=== PATIENT | female | born 1940 | race Caucasian/White ===

== ENCOUNTER 2020-03-12 11:05 | Inpatient (IN) | payer MEDICARE, OTHER, MEDICAID ==
[~2020-03-12] VITALS: Ht 167.6 cm; Wt 62.2 kg
--- NOTE | ~2020-03-12 | H ---
[address] [address] HISTORY AND PHYSICAL Name: DEON FLOYD Room: [address] IN M.R.#: [id number] Admission: 03/12/20 Attend Phys: Stephon Snyder Discharge: Date of : 42 Report #: [id number] THIS REPORT FOR: //name// cc: Aleshia Ferguson Kathryn C. DO ~ CC: Aleshia Louie DATE OF SERVICE: 03/12/2020 CONSULTING PHYSICIAN: Severino Louie DO REASON FOR CONSULTATION: Hypernatremia. HISTORY OF PRESENT ILLNESS: The patient is a 79-year-old female with a history of dementia who was admitted from a custodial with altered mental status. Neurology has been seeing her. I was asked to see her because of hypernatremia. She has had a sodium as high as 165 here, she was started on D5W. She is producing urine. She remains confused, also found to have urinary tract infection and has been started on antibiotics. She initially did have a creatinine of 2 on admission, baseline creatinine is unknown. REVIEW OF SYSTEMS: Constitutional, psychiatry, hemotology, eyes, ENT, respiratory, cardiac, GI, , endocrine, all negative except as documented above and as best as can be ascertained from chart review. PAST MEDICAL HISTORY: History of hypertension, dementia, prosthetic heart valve, history of depression and anxiety. FAMILY HISTORY: Not pertinent to current clinical case in this 79-year-old female. SOCIAL HISTORY: Resides in a nursing facility. No tobacco. CURRENT MEDICATIONS: Reviewed. PHYSICAL EXAMINATION: VITAL SIGNS: Blood pressure is 170/66, pulse 54, respirations 18 and temperature 36.4. GENERAL: No acute distress. EYES: Open. EARS: Externally normal. CARDIOVASCULAR: Regular rate. Pulse is about 60. LUNGS: Decreased breath sounds. ABDOMEN: Soft. MUSCULOSKELETAL: [place] [address] HISTORY AND PHYSICAL Name: DEON FLOYD Room: [address] IN [facility].#: [id number] Admission: 03/12/20 Attend Phys: Stephon Snyder Discharge: Date of : 42 Report #: [id number] PSYCHIATRIC: Abnormal judgment and insight. LABORATORY DATA: White cell count 12, hemoglobin 10.5, platelets 186. Sodium 158, potassium 3, chloride 121, bicarbonate 25, BUN 22, creatinine 1.3, glucose ____, calcium 8.1, albumin 2.7. ASSESSMENT: 1. Acute kidney injury with an admission creatinine of 2, baseline creatinine unknown. This is in the setting of dehydration. UA was consistent with urinary tract infection. 2. Hypernatremia on 03/12/2020, sodium of 158 up to 165, on 03/14/2020. 3. Hypoalbuminemia with an albumin of 2.7. 4. Hypertension. 5. Dementia. 6. Urinary tract infection. PLAN: 1. Sodium is coming down. Continue current IV fluids. 2. Hypokalemia. We will replace. 3. Check renal ultrasound. 4. Check lab again in the a.m. Thank you for requesting my opinion in the care and management of this patient. By: [id number] Rubio Salgado MD /nt
[2020-03-12] MEDS ORDERED: DIVALPROEX SOD125 MG PO (11:08)
[2020-03-12 11:09] VITALS: BP 178/86
[2020-03-12] MEDS ORDERED: ESCITALOPRA5 MG/5 ML PO (11:09)
[2020-03-12] MEDS ORDERED: MIRALAX119 GM PO (11:09)
[2020-03-12] MEDS ORDERED: LORAZEPAM 1 MG T1 MG PO (11:09)
[2020-03-12] MEDS ORDERED: FLORASTORKIDS250 MG PO (11:09)
[2020-03-12] MEDS ORDERED: TYLENOL325 MG PO (11:10)
[2020-03-12] MEDS ORDERED: QUETIAPINE FUMA50 M1 PO (11:10)
[2020-03-12] MEDS ORDERED: LORCET 5-325 M1 EACH PO (11:11)
[2020-03-12] MEDS ORDERED: LEVSIN0.125 MG PO (11:11)
[2020-03-12 11:32] LABS: URINE BLOOD 3+ (Negative); URINE CLARITY CLOUDY; URINE COLOR YELLOW; URINE GLUCOSE-RANDOM NEGATIVE (Negative); URINE KETONES TRACE (Negative); URINE PROTEIN 2+ (Negative); URINE SPECIFIC GRAVITY 1.025 (1.005-1.030)
[2020-03-12 11:33] LABS: URINE BILIRUBIN 1+ (Negative); URINE LEUKOCYTES-REFLEX 3+ (Negative); URINE NITRITE-REFLEX POSITIVE (Negative)
[2020-03-12 11:34] LABS: ICTOTEST (BILI CONFIRMATORY) Positive (Negative)
[2020-03-12 11:44] LABS: SQUAMOUS 0-3 Few /LPF (0-3); URINE WBC-REFLEX >25 Many /HPF (0-5)
[2020-03-12 11:45] LABS: BACTERIA-REFLEX >30 Many /HPF (None Seen); CASTS None Seen /LPF (None Seen); CRYSTALS None Seen /LPF (None Seen); MUCUS 0-3 Light strn/LPF (None Seen)
[2020-03-12 11:52] LABS: ABSOLUTE BASOPHILS 0.1 thou/uL (0.0-0.2); ABSOLUTE LYMPHOCYTES 2.8 thou/uL (0.8-5.3); ABSOLUTE MONOCYTES 1.8 thou/uL (0.0-1.2); ABSOLUTE NEUTROPHILS 15.3 thou/uL (1.6-8.1); BASOPHILS 0.7 %; EOSINOPHILS 0.1 %; HEMATOCRIT 42.6 % (37.0-47.0); LYMPHOCYTES 14.1 %; MCH 30.2 pg (26.0-34.0); MCHC 32.9 g/dL (28.0-37.0); MCV 91.7 fL (80.0-100.0); MONOCYTES 8.8 %; MPV 8.3 fl. (7.2-11.1); NUCLEATED RBCS 0 /100WBC; PLATELET COUNT* 332 thou/uL (150-400); POLYS 76.3 %; RBC 4.64 mil/uL (4.20-5.00)
[2020-03-12 12:00] LABS: ANION GAP 16 mmol/L (7-16); BUN 62 mg/dL (7-18); CALCIUM 9.8 mg/dL (8.5-10.1); CHLORIDE 116 mmol/L (98-107); CO2 26 mmol/L (21-32); GLUCOSE 167 mg/dL (70-99); POTASSIUM 3.8 mmol/L (3.5-5.1); SODIUM 158 mmol/L (136-145)
[2020-03-12 12:11] LABS: ALBUMIN 4.2 g/dL (3.4-5.0); ALKALINE PHOSPHATASE 80 U/L (46-116); NT-PRO BRAIN NAT PEPTIDE 1705 pg/mL (<300); SGOT 73 U/L (15-37); SGPT 71 U/L (30-65); TOTAL PROTEIN 9.7 g/dL (6.4-8.2)
[2020-03-12 12:12] LABS: AMMONIA < 10 umol/L (11-32)
[2020-03-12 14:06] VITALS: BP 164/80
[2020-03-12 14:49] VITALS: BP 167/95
[2020-03-12 19:53] LABS: CALCIUM 8.4 mg/dL (8.5-10.1); CREATININE 1.7 mg/dL (0.6-1.3); MAGNESIUM 2.6 mg/dL (1.8-2.4); POTASSIUM 3.8 mmol/L (3.5-5.1)
[2020-03-12 20:00] VITALS: BP 167/80
[2020-03-13 05:04] LABS: HEMATOCRIT 36.3 % (37.0-47.0); MCH 30.8 pg (26.0-34.0); MCV 93.5 fL (80.0-100.0); MPV 8.9 fl. (7.2-11.1); NUCLEATED RBCS 0 /100WBC; RBC 3.88 mil/uL (4.20-5.00); RDW-CV 16.7 % (10.5-14.5); WBC 21.8 thou/uL (4.0-11.0)
[2020-03-13 05:20] LABS: PLATELET COUNT* 255 thou/uL (150-400)
[2020-03-13 05:31] LABS: ALBUMIN 3.3 g/dL (3.4-5.0); CALCIUM 8.7 mg/dL (8.5-10.1); CREATININE 1.5 mg/dL (0.6-1.3); MAGNESIUM 2.7 mg/dL (1.8-2.4); TOTAL BILIRUBIN 0.5 mg/dL (<0.1-1.0); TOTAL PROTEIN 7.8 g/dL (6.4-8.2)
[2020-03-13 06:04] LABS: ABSOLUTE EOSINOPHILS 0.2 thou/uL (0.0-0.7); ABSOLUTE LYMPHOCYTES 3.1 thou/uL (0.8-5.3); ABSOLUTE MONOCYTES 2.6 thou/uL (0.0-1.2); ABSOLUTE NEUTROPHILS 15.9 thou/uL (1.6-8.1); ATYPICAL LYMPHS 1 %
[2020-03-13 06:05] LABS: ANISOCYTOSIS 1+; PLATELET ESTIMATE ADEQUATE; POIKILOCYTOSIS 1+
[2020-03-13 07:30] VITALS: BP 167/81
--- NOTE | 2020-03-13 07:57 | EKG ---
[place] [address] ELECTROCARDIOGRAM REPORT Name: DEON FLOYD Room: [address] ADM IN M.R.#: [id number] Admission: 03/12/20 Attend Phys: Severino Louie Discharge: Date of : 42 Date of Service: 03/12/20 1119 Report #: [id number] THIS REPORT FOR: //name// [facility] ED Test Date: 2020-03-12 Test Time: 11:19:48 Pat Name: DEON FLOYD Department: Room: [facility] Gender: F [employer]: REGINO : 1940 Requested By: Blake Pascal Order Number: [id number] MD: Darryl Pearson Measurements Intervals Guide Rock Rate: 94 P: 65 NV: 139 QRS: -33 QRSD: 85 T: 220 QT: 312 QTc: 391 Interpretive Statements Sinus rhythm Inferoposterior infarct Lateral leads are also involved Baseline wander in lead(s) II,III,aVR,aVL,aVF,V1,V4,V5 No previous ECG available for comparison Electronically Signed On 03-13-2020 7:57:39 CDT by Darryl Pearson [email or web address] <ELECTRONICALLY SIGNED> By: Darryl Pearson MD, FACC 03/13/20 0757 1119 1119 Darryl Pearson MD, FACC /EPI
[2020-03-13 10:58] LABS: ALBUMIN 3.3 g/dL (3.4-5.0); CALCIUM 8.5 mg/dL (8.5-10.1); CREATININE 1.3 mg/dL (0.6-1.3); POTASSIUM 3.5 mmol/L (3.5-5.1); TOTAL BILIRUBIN 0.5 mg/dL (<0.1-1.0); TOTAL PROTEIN 7.8 g/dL (6.4-8.2)
[2020-03-13 12:30] LABS: ALBUMIN 3.2 g/dL (3.4-5.0); CALCIUM 8.5 mg/dL (8.5-10.1); CREATININE 1.3 mg/dL (0.6-1.3); POTASSIUM 3.7 mmol/L (3.5-5.1); TOTAL BILIRUBIN 0.5 mg/dL (<0.1-1.0); TOTAL PROTEIN 7.8 g/dL (6.4-8.2)
[2020-03-13 16:00] VITALS: BP 167/74
[2020-03-13 16:01] LABS: ALBUMIN 3.2 g/dL (3.4-5.0); CALCIUM 8.5 mg/dL (8.5-10.1); CREATININE 1.3 mg/dL (0.6-1.3); POTASSIUM 3.4 mmol/L (3.5-5.1); TOTAL BILIRUBIN 0.5 mg/dL (<0.1-1.0); TOTAL PROTEIN 7.9 g/dL (6.4-8.2)
[2020-03-13 20:20] VITALS: BP 171/69
[2020-03-14 02:21] VITALS: BP 162/59
[2020-03-14 03:49] LABS: ABSOLUTE BASOPHILS 0.1 thou/uL (0.0-0.2); ABSOLUTE LYMPHOCYTES 2.8 thou/uL (0.8-5.3); ABSOLUTE MONOCYTES 1.5 thou/uL (0.0-1.2); ABSOLUTE NEUTROPHILS 11.1 thou/uL (1.6-8.1); BASOPHILS 0.8 %; EOSINOPHILS 0.3 %; HEMATOCRIT 35.8 % (37.0-47.0); HEMOGLOBIN 11.7 gm/dL (12.0-15.0); LYMPHOCYTES 18.1 %; MCH 30.3 pg (26.0-34.0); MCHC 32.7 g/dL (28.0-37.0); MCV 92.8 fL (80.0-100.0); MONOCYTES 9.7 %; MPV 8.6 fl. (7.2-11.1); NUCLEATED RBCS 0 /100WBC; PLATELET COUNT* 219 thou/uL (150-400); POLYS 71.1 %; RBC 3.85 mil/uL (4.20-5.00); RDW-CV 16.9 % (10.5-14.5); WBC 15.6 thou/uL (4.0-11.0)
[2020-03-14 04:06] LABS: ALBUMIN 3.1 g/dL (3.4-5.0); CALCIUM 8.4 mg/dL (8.5-10.1); CREATININE 1.4 mg/dL (0.6-1.3); MAGNESIUM 2.6 mg/dL (1.8-2.4); POTASSIUM 3.3 mmol/L (3.5-5.1); TOTAL BILIRUBIN 0.4 mg/dL (<0.1-1.0); TOTAL PROTEIN 7.1 g/dL (6.4-8.2)
[2020-03-14 07:45] VITALS: BP 114/81
[2020-03-14 13:04] LABS: CALCIUM 8.5 mg/dL (8.5-10.1); CREATININE 1.3 mg/dL (0.6-1.3); POTASSIUM 3.3 mmol/L (3.5-5.1); TOTAL BILIRUBIN 0.4 mg/dL (<0.1-1.0); TOTAL PROTEIN 7.5 g/dL (6.4-8.2)
[2020-03-14 16:00] VITALS: BP 169/67
[2020-03-14 20:00] VITALS: BP 158/68
[2020-03-15] VITALS: BP 168/65
[2020-03-15 04:00] VITALS: BP 170/66
[2020-03-15 06:12] LABS: HEMOGLOBIN 10.5 gm/dL (12.0-15.0); MCH 30.1 pg (26.0-34.0); MPV 9.5 fl. (7.2-11.1); RBC 3.51 mil/uL (4.20-5.00); RDW-CV 16.9 % (10.5-14.5)
[2020-03-15 07:02] LABS: ALBUMIN 2.7 g/dL (3.4-5.0); CALCIUM 8.1 mg/dL (8.5-10.1); CREATININE 1.3 mg/dL (0.6-1.3); TOTAL BILIRUBIN 0.4 mg/dL (<0.1-1.0); TOTAL PROTEIN 7.1 g/dL (6.4-8.2)
[2020-03-15 09:00] VITALS: BP 165/65
[2020-03-15 15:41] VITALS: BP 144/45
[2020-03-15 20:55] VITALS: BP 104/56
[2020-03-16 07:51] LABS: HEMATOCRIT 30.6 % (37.0-47.0); HEMOGLOBIN 9.9 gm/dL (12.0-15.0); MCH 29.7 pg (26.0-34.0); MCHC 32.5 g/dL (28.0-37.0); MCV 91.5 fL (80.0-100.0); MPV 9.3 fl. (7.2-11.1); RBC 3.34 mil/uL (4.20-5.00); RDW-CV 15.9 % (10.5-14.5); WBC 12.1 thou/uL (4.0-11.0)
[2020-03-16 08:22] LABS: ALBUMIN 2.5 g/dL (3.4-5.0); CALCIUM 7.6 mg/dL (8.5-10.1); MAGNESIUM 1.8 mg/dL (1.8-2.4); PHOSPHORUS* 2.1 mg/dL (2.5-4.9); POTASSIUM 3.9 mmol/L (3.5-5.1); TOTAL BILIRUBIN 0.3 mg/dL (<0.1-1.0); TOTAL PROTEIN 6.6 g/dL (6.4-8.2)
[2020-03-16 10:00] VITALS: BP 154/76
[2020-03-16 16:14] VITALS: BP 148/72
[2020-03-16 21:00] VITALS: BP 146/27
[2020-03-17 03:43] LABS: ABSOLUTE EOSINOPHILS 0.4 thou/uL (0.0-0.7); ABSOLUTE LYMPHOCYTES 3.7 thou/uL (0.8-5.3); ABSOLUTE MONOCYTES 0.9 thou/uL (0.0-1.2); ABSOLUTE NEUTROPHILS 5.4 thou/uL (1.6-8.1); BASOPHILS 0.4 %; EOSINOPHILS 3.7 %; HEMATOCRIT 29.6 % (37.0-47.0); LYMPHOCYTES 35.4 %; MCH 30.4 pg (26.0-34.0); MCHC 33.7 g/dL (28.0-37.0); MCV 90.4 fL (80.0-100.0); MONOCYTES 8.8 %; MPV 9.7 fl. (7.2-11.1); NUCLEATED RBCS 0 /100WBC; PLATELET COUNT* 149 thou/uL (150-400); POLYS 51.7 %; RBC 3.27 mil/uL (4.20-5.00); RDW-CV 15.4 % (10.5-14.5); WBC 10.4 thou/uL (4.0-11.0)
[2020-03-17 04:09] LABS: ALBUMIN 2.4 g/dL (3.4-5.0); CALCIUM 8.2 mg/dL (8.5-10.1); CREATININE 1.1 mg/dL (0.6-1.3); TOTAL BILIRUBIN 0.3 mg/dL (<0.1-1.0); TOTAL PROTEIN 6.3 g/dL (6.4-8.2)
[2020-03-17 08:52] VITALS: BP 158/66
[2020-03-17] MEDS ORDERED: AUGMENTIN 875-1 EACH PO (09:52)
== END 2020-03-17 16:13 | DRG 871 ==
LOC: M.ERS 11:05 → M.3W 12:11 → M.TBA-ER 12:11 → M.3W 14:20 → M.ORTHSURG 03-13 18:56
PROVIDERS: Emergency Medicine Emergency Medical Services; Internal Medicine; ADMIT Internal Medicine; ATTEND Internal Medicine
DX: A41.9 Sepsis, unspecified organism (principal); G93.41 Metabolic encephalopathy; N39.0 Urinary tract infection, site not specified; E87.0 Hyperosmolality and hypernatremia; N17.9 Acute kidney failure, unspecified; F03.90 Unspecified dementia, unspecified severity, without behavioral disturbance, psychotic disturbance, mood disturbance, and anxiety; I10 Essential (primary) hypertension; E86.0 Dehydration; F32.9 Major depressive disorder, single episode, unspecified; F41.9 Anxiety disorder, unspecified; Z20.828 Contact with and (suspected) exposure to other viral communicable diseases; Z95.4 Presence of other heart-valve replacement; Z88.5 Allergy status to narcotic agent; Z88.2 Allergy status to sulfonamides; Z79.899 Other long term (current) drug therapy; Z23 Encounter for immunization